=== PATIENT | female | born 1945 | race Caucasian/White ===

== ENCOUNTER 2018-09-18 19:54 | Inpatient (IN) | payer OTHER ==
[~2018-09-18] VITALS: Ht 167.6 cm; Wt 119.4 kg
[~2018-09-18 19:54] MED LIST: ALPR0.5T; ALPR1TAB2 PO; AML5T PO; CARV6.2551 PO; CLON0.1T PO; FLUC200T35; GABA800T97 PO; INSLANTI; LANS30CA57 PO; NITR0.4D3; NORVASC; OMEP20CA74 OR; ONDA-144 PO; SIMV-8 PO; SIMV20TA90 PO; [UNRECOGNIZED DRUG - CODE] PO
[2018-09-18] MEDS ORDERED: SODIUM CHLORIDE 0.9% 1,000 ML IV SCH (22:00)
[2018-09-18 22:18] LABS: Basophils # (auto) 0 uL; Basophils % (auto) 0.2 % (0.0-2.0); Eosinophils # (auto) 0.1 uL; Eosinophils % (auto) 0.5 % (0.0-7.0); Hematocrit 46.5 % (36.0-46.0); Hemoglobin 15.3 g/dL (12.2-16.2); Lymphocytes # (auto) 2.3 uL; Lymphocytes % (auto) 16.9 % (10.0-50.0); Mean Corpuscular Hemoglobin 31.5 pg (28.0-32.0); Mean Corpuscular Volume 95.5 fL (80.0-100.0); Monocytes # (auto) 1.1 uL; Monocytes % (auto) 7.9 % (0.0-12.0); Neutrophils % (auto) 74.5 % (37.0-80.0); Nucleated Red Blood Cells % 0.2 %; Platelet Count (auto) 121 10^3/uL (140-450); Red Blood Cells 4.87 10^6/uL (4.0-5.20); Red Cell Distribution Width 12.9 % (11.8-14.3); White Blood Cell 13.5 10^3/uL (4.4-10.8)
[2018-09-18 22:45] LABS: INR 1.38 (0.9-1.15)
[2018-09-18 23:10] LABS: Albumin 3.2 g/dL (3.4-5.0); Anion Gap 8 (5-15); Blood Alcohol < 3.0 mg/dL (0-5); Blood Urea Nitrogen 71 mg/dL (7-18); Calcium 8.7 mg/dL (8.5-10.1); Carbon Dioxide 25 mmol/L (21-32); Chloride 102 mmol/L (98-107); Glucose 248 mg/dL (74-106); Magnesium 2.7 mg/dL (1.6-2.6); Potassium 5.1 mmol/L (3.5-5.1); Sodium 135 mmol/L (136-145)
[2018-09-18 23:16] LABS: Alanine Aminotransferase 119 U/L (13-56); Alkaline Phosphatase 126 U/L (45-117); Aspartate Aminotransferase 100 U/L (15-37); BUN/Creatinine Ratio 20.1; Bilirubin, Total 0.4 mg/dL (0.2-1.0); GFR African American 16 mL/min; GFR Non-African American 14 mL/min; Total Protein 6.7 g/dL (6.4-8.2)
[2018-09-19] MEDS ORDERED: FUROSEMIDE 40 MG/4 ML VIAL IV ONE (02:00)
[2018-09-19] MEDS ORDERED: ENOXAPARIN SOD 100 MG/1 ML SYRINGE SC ONE (02:00)
[2018-09-19 02:46] LABS: Urine Bacteria MANY /hpf (None Seen); Urine Blood Negative /uL (Negative); Urine Hyaline Cast FEW /lpf (0 - 2); Urine Specific Gravity 1.017 (1.001-1.035); Urine WBC 93 /hpf (0 - 5)
[2018-09-19 03:06] LABS: Alcohol, Urine < 3.0 mg/dL (0-5); Amphetamine Screen, Urine NEGATIVE (NEGATIVE); Barbiturate Scree,Urine NEGATIVE (NEGATIVE); Benzodiazephine Screen, Urine POSITIVE (NEGATIVE); Cannabinoid Screen, Urine NEGATIVE (NEGATIVE); Cocaine Screen, Urine NEGATIVE (NEGATIVE)
[2018-09-19 03:13] LABS: Opiate Scree,Urine NEGATIVE (NEGATIVE); Phencyclidine Screen, Urine NEGATIVE (NEGATIVE)
[2018-09-19] MEDS ORDERED: metroNIDAZOLE 500MG/100ML 100 ML IV ONE (04:30)
[2018-09-19] MEDS ORDERED: cefTRIAXone 1GM/50ML D5W 50 ML IV ONE (04:30)
[2018-09-19] MEDS ORDERED: DEXTROSE (50%) 50ML SYRG IV PRN (06:15)
[2018-09-19] MEDS ORDERED: ONDANSETRON HCL 4 MG/2 ML VIAL IV PRN (06:15)
[2018-09-19] MEDS ORDERED: HYDROcodone-ACET 5/325MG TAB PO PRN (06:15)
[2018-09-19] MEDS: ACCU-CHEK COMFORT CURVE STRIP VI SCH ×4 (07:26→21:42)
[2018-09-19] MEDS: InsuLIN REG 1unit/0.01ml Soln (100units/ml) SC SCH ×4 (07:27→22:20)
[2018-09-19 09:21] LABS: Basophils # (auto) 0 uL; Basophils % (auto) 0.3 % (0.0-2.0); Eosinophils # (auto) 0.1 uL; Eosinophils % (auto) 1.2 % (0.0-7.0); Hematocrit 46.2 % (36.0-46.0); Hemoglobin 15.1 g/dL (12.2-16.2); Lymphocytes # (auto) 1.7 uL; Lymphocytes % (auto) 14.1 % (10.0-50.0); Mean Corpuscular Hemoglobin 31.5 pg (28.0-32.0); Mean Corpuscular Hgb Conc. 32.6 g/dL (32.0-36.0); Mean Corpuscular Volume 96.4 fL (80.0-100.0); Monocytes % (auto) 7.7 % (0.0-12.0); Neutrophils # (auto) 9.4 uL; Neutrophils % (auto) 76.7 % (37.0-80.0); Nucleated Red Blood Cells % 0.1 %; Platelet Count (auto) 110 10^3/uL (140-450); Red Blood Cells 4.79 10^6/uL (4.0-5.20); Red Cell Distribution Width 12.9 % (11.8-14.3); White Blood Cell 12.3 10^3/uL (4.4-10.8)
[2018-09-19 09:47] LABS: BUN/Creatinine Ratio 25.1; Calcium 8.4 mg/dL (8.5-10.1); Potassium 4.5 mmol/L (3.5-5.1)
[2018-09-19] MEDS: amLODIPine BESYLATE 5 MG TAB PO SCH (10:00)
[2018-09-19] MEDS ORDERED: FUROSEMIDE 40 MG/4 ML VIAL IV SCH (10:00)
[2018-09-19] MEDS: PANTOPRAZOLE 40 MG TAB PO SCH (10:29)
[2018-09-19] MEDS: ASPirin-EC 81 mg tab PO SCH (10:29)
[2018-09-19] MEDS: ACETAMINOPHEN 500 MG TAB PO PRN (10:30)
[2018-09-19] MEDS: CARVEDILOL 3.125 MG TAB PO SCH ×2 (10:31→21:39)
[2018-09-19 11:19] LABS: Salicylate 2.9 mg/dL (2.8-20.0)
[2018-09-19 11:24] LABS: Acetaminophen < 2.0 ug/mL (10-30)
[2018-09-19 12:00] VITALS: BP 139/71
[2018-09-19] MEDS: SODIUM CHLORIDE 0.9% 1,000 ML IV SCH (13:34)
[2018-09-19 16:56] VITALS: BP 112/59
[2018-09-19 17:59] LABS: Albumin 2.7 g/dL (3.4-5.0); Bilirubin, Direct 0.1 mg/dL (0-0.2)
[2018-09-19 18:02] LABS: Bilirubin, Total 0.3 mg/dL (0.2-1.0); Total Protein 5.8 g/dL (6.4-8.2)
[2018-09-19 20:00] VITALS: BP 118/51
[2018-09-19 21:35] VITALS: BP 118/51
[2018-09-19] MEDS: ATORVASTATIN 20 MG TAB PO SCH (21:38)
[2018-09-20] MEDS: SODIUM CHLORIDE 0.9% 1,000 ML IV SCH ×3 (02:35→23:32)
[2018-09-20 04:36] VITALS: BP 114/73
[2018-09-20 05:59] LABS: Basophils # (auto) 0.1 uL; Basophils % (auto) 0.5 % (0.0-2.0); Eosinophils # (auto) 0.1 uL; Eosinophils % (auto) 1.5 % (0.0-7.0); Hematocrit 45.4 % (36.0-46.0); Hemoglobin 14.8 g/dL (12.2-16.2); Lymphocytes # (auto) 1.4 uL; Lymphocytes % (auto) 14.2 % (10.0-50.0); Mean Corpuscular Hemoglobin 31.7 pg (28.0-32.0); Mean Corpuscular Hgb Conc. 32.6 g/dL (32.0-36.0); Mean Corpuscular Volume 97.4 fL (80.0-100.0); Monocytes # (auto) 0.8 uL; Monocytes % (auto) 8.4 % (0.0-12.0); Neutrophils # (auto) 7.3 uL; Neutrophils % (auto) 75.4 % (37.0-80.0); Nucleated Red Blood Cells % 0.1 %; Platelet Count (auto) 113 10^3/uL (140-450); Red Blood Cells 4.67 10^6/uL (4.0-5.20); Red Cell Distribution Width 13.5 % (11.8-14.3); White Blood Cell 9.7 10^3/uL (4.4-10.8)
[2018-09-20 06:07] LABS: BUN/Creatinine Ratio 33.1; Calcium 8.3 mg/dL (8.5-10.1); Magnesium 2.4 mg/dL (1.6-2.6); Potassium 4.6 mmol/L (3.5-5.1)
[2018-09-20] MEDS: ACCU-CHEK COMFORT CURVE STRIP VI SCH ×4 (06:18→21:34)
[2018-09-20] MEDS: InsuLIN REG 1unit/0.01ml Soln (100units/ml) SC SCH ×4 (06:19→21:34)
[2018-09-20 08:00] VITALS: BP 127/70
[2018-09-20] MEDS: ASPirin-EC 81 mg tab PO SCH (10:00)
[2018-09-20] MEDS: PANTOPRAZOLE 40 MG TAB PO SCH (10:28)
[2018-09-20] MEDS: CARVEDILOL 3.125 MG TAB PO SCH ×2 (10:29→21:33)
[2018-09-20] MEDS: cefTRIAXone 1GM/50ML D5W 50 ML IV SCH (10:30)
[2018-09-20] MEDS: amLODIPine BESYLATE 5 MG TAB PO SCH (10:30)
[2018-09-20 13:00] VITALS: BP 149/67
[2018-09-20 17:00] VITALS: BP 133/88
[2018-09-20] MEDS: ATORVASTATIN 20 MG TAB PO SCH (21:33)
[2018-09-20 22:00] VITALS: BP 127/75
[2018-09-21 05:00] VITALS: BP 128/86
[2018-09-21] MEDS: SODIUM CHLORIDE 0.9% 1,000 ML IV SCH ×2 (05:15→22:15)
[2018-09-21] MEDS: InsuLIN REG 1unit/0.01ml Soln (100units/ml) SC SCH ×4 (06:15→22:08)
[2018-09-21] MEDS: ACCU-CHEK COMFORT CURVE STRIP VI SCH ×4 (06:15→22:08)
[2018-09-21 09:33] LABS: Basophils # (auto) 0 uL; Basophils % (auto) 0.3 % (0.0-2.0); Eosinophils # (auto) 0.1 uL; Eosinophils % (auto) 0.5 % (0.0-7.0); Hematocrit 46.4 % (36.0-46.0); Hemoglobin 15.4 g/dL (12.2-16.2); Lymphocytes # (auto) 1.4 uL; Lymphocytes % (auto) 13.2 % (10.0-50.0); Mean Corpuscular Hemoglobin 31.4 pg (28.0-32.0); Mean Corpuscular Hgb Conc. 33.1 g/dL (32.0-36.0); Monocytes # (auto) 0.7 uL; Monocytes % (auto) 7.1 % (0.0-12.0); Neutrophils # (auto) 8.1 uL; Neutrophils % (auto) 78.9 % (37.0-80.0); Platelet Count (auto) 131 10^3/uL (140-450); Red Blood Cells 4.88 10^6/uL (4.0-5.20); Red Cell Distribution Width 13.1 % (11.8-14.3); White Blood Cell 10.2 10^3/uL (4.4-10.8)
[2018-09-21 09:55] LABS: Albumin 2.8 g/dL (3.4-5.0); BUN/Creatinine Ratio 29.9; Calcium 8.6 mg/dL (8.5-10.1); Magnesium 2.1 mg/dL (1.6-2.6); Potassium 3.9 mmol/L (3.5-5.1)
[2018-09-21 09:58] LABS: Bilirubin, Total 0.4 mg/dL (0.2-1.0)
[2018-09-21] MEDS: ASPirin-EC 81 mg tab PO SCH (10:00)
[2018-09-21] MEDS: PANTOPRAZOLE 40 MG TAB PO SCH (10:21)
[2018-09-21] MEDS: CARVEDILOL 3.125 MG TAB PO SCH ×2 (10:21→22:07)
[2018-09-21] MEDS: amLODIPine BESYLATE 5 MG TAB PO SCH (10:21)
[2018-09-21] MEDS: cefTRIAXone 1GM/50ML D5W 50 ML IV SCH (10:39)
[2018-09-21 13:00] VITALS: BP 145/69
[2018-09-21 17:00] VITALS: BP 136/67
[2018-09-21] MEDS: ATORVASTATIN 20 MG TAB PO SCH (21:52)
[2018-09-21 22:00] VITALS: BP 136/56
[2018-09-21] MEDS: ACETAMINOPHEN 500 MG TAB PO PRN (22:39)
[2018-09-22 05:00] VITALS: BP 129/89
[2018-09-22] MEDS: InsuLIN REG 1unit/0.01ml Soln (100units/ml) SC SCH ×3 (06:13→17:24)
[2018-09-22] MEDS: ACCU-CHEK COMFORT CURVE STRIP VI SCH ×3 (06:14→17:04)
[2018-09-22] MEDS: ACETAMINOPHEN 500 MG TAB PO PRN ×2 (06:19→13:29)
[2018-09-22 08:42] VITALS: BP 132/87
[2018-09-22] MEDS: ASPirin-EC 81 mg tab PO SCH (10:01)
[2018-09-22] MEDS: PANTOPRAZOLE 40 MG TAB PO SCH (10:01)
[2018-09-22] MEDS: cefTRIAXone 1GM/50ML D5W 50 ML IV SCH (10:01)
[2018-09-22] MEDS: CARVEDILOL 3.125 MG TAB PO SCH (10:01)
[2018-09-22] MEDS: amLODIPine BESYLATE 5 MG TAB PO SCH (10:02)
[2018-09-22 12:55] VITALS: BP 129/92
[2018-09-22] MEDS: SODIUM CHLORIDE 0.9% 1,000 ML IV SCH (14:56)
[2018-09-22 17:40] VITALS: BP 136/90
[2018-09-22 17:42] VITALS: BP 129/92
== END 2018-09-22 19:02 | DRG 917 ==
LOC: EDBD 19:54 → ER 19:54 → EDUNIT# 19:54 → TELE 19:55 → TELE-WESTW 09-19 11:13
PROVIDERS: ADMIT Nurse Practitioner Family; ATTEND Internal Medicine Geriatric Medicine
DX: T40.601A Poisoning by unspecified narcotics, accidental (unintentional), initial encounter (principal); G92 Toxic encephalopathy; I13.0 Hypertensive heart and chronic kidney disease with heart failure and stage 1 through stage 4 chronic kidney disease, or unspecified chronic kidney disease; N39.0 Urinary tract infection, site not specified; N17.9 Acute kidney failure, unspecified; I24.9 Acute ischemic heart disease, unspecified; N18.9 Chronic kidney disease, unspecified; E86.0 Dehydration; E11.22 Type 2 diabetes mellitus with diabetic chronic kidney disease; K21.9 Gastro-esophageal reflux disease without esophagitis; E78.5 Hyperlipidemia, unspecified; Y92.89 Other specified places as the place of occurrence of the external cause; D72.823 Leukemoid reaction; E11.9 Type 2 diabetes mellitus without complications; J44.9 Chronic obstructive pulmonary disease, unspecified; Z82.49 Family history of ischemic heart disease and other diseases of the circulatory system; Z90.710 Acquired absence of both cervix and uterus; I50.9 Heart failure, unspecified; S82.401A Unspecified fracture of shaft of right fibula, initial encounter for closed fracture
CPT/HCPCS: 36415; 51702; 70450; 71045; 73610; 80048; 80053; 80076; 80307; 80320; 80329; 81001; 82550; 82962; 83036; 83735; 83880; 84443; 84484; 85025; 85610; 87070; 87086; 87088; 87186; 93005; 93306; 94761; 96361; 96365; 96367; 96372; 97116; 97530; G0378; J0696; J1815; J2405; J3490

== ENCOUNTER 2018-10-03 08:46 | Emergency (ER) | payer OTHER ==
[~2018-10-03] VITALS: Ht 165.1 cm; Wt 113.4 kg
[2018-10-03 08:46] VITALS: BP 0/0
[2018-10-03] MEDS ORDERED: EPINEPHrine HCL 1 MG/10 ML SYRG IV ONE (08:47)
[2018-10-03] MEDS ORDERED: SODIUM BICARBONATE 8.4% INJ 50ML SYRINGE IV ONE (08:47)
[2018-10-03] MEDS ORDERED: CALCIUM CHLOR(10%) 100MG/ML 10ML SYRINGE IV ONE (08:47)
== END 2018-10-03 12:38 | disposition expired ==
LOC: EDUNIT# 08:46 → ER 08:46
DX: I46.9 Cardiac arrest, cause unspecified (principal); J44.9 Chronic obstructive pulmonary disease, unspecified; E11.9 Type 2 diabetes mellitus without complications; E78.5 Hyperlipidemia, unspecified; I10 Essential (primary) hypertension; F41.9 Anxiety disorder, unspecified; Z90.710 Acquired absence of both cervix and uterus; Z79.899 Other long term (current) drug therapy
CPT/HCPCS: 92950; 99285; J0171